=== PATIENT | female | born 1945 | race Caucasian/White ===

== ENCOUNTER 2017-04-27 13:50 | Emergency (ER) | payer MEDICARE ==
[~2017-04-27] VITALS: Ht 162.6 cm; Wt 70.0 kg
[2017-04-27 14:10] VITALS: BP 147/65; PULSE 98; RESP 16; TEMP 98.3; O2SAT 99
--- NOTE | 2017-04-27 14:35 | PD ---
HPI Chief Complaint: Musculoskeletal Complaint Time Seen by Provider: 14:15 Travel History International Travel<30 days: No Contact w/Intl Traveler<30days: No Traveled to known affect area: No History of Present Illness HPI 72-year-old female with history of DVT, PE presents to the ED for evaluation of 2 day history of 6/10 left posterior calf pain. Gradual onset. Patient can identify no acute trauma. She states that she fell a few days ago but she states that she struck her right staples and did not injure her left calf in this fall. She denies any recent period of immobilization or surgery. She denies chest pain, palpitations, shortness of breath, abdominal pain, nausea, vomiting , dysuria. She states that she took Coumadin for a year after her DVT. She no longer takes blood thinners. She lives in [place] for the [place]. She does not have a local physician. [facility] Social History Tobacco Use: No Review of Systems Except as stated in HPI: all other systems reviewed are Neg Physical Exam Narrative GENERAL: Well-nourished, well-developed white female in no acute distress. SKIN: Focused skin assessment warm/dry. Mild ecchymosis over the mid staples of the right leg. HEAD: Normocephalic. EYES: No scleral icterus. No injection or drainage. NECK: Supple, trachea midline. No JVD or lymphadenopathy. CARDIOVASCULAR: Regular rate and rhythm without murmurs, gallops, or rubs. RESPIRATORY: Breath sounds clear and equal bilaterally. No accessory muscle use. GASTROINTESTINAL: Abdomen soft, non-tender, nondistended. Active bowel signs. MUSCULOSKELETAL: No cyanosis, or edema. Tender ecchymosis and edema approximately 3 cm over the anterior right staples. Homans sign negative. FOCUSED LEFT LOWER EXTREMITY EXAM: 2+ DP pulse. Neurovascularly intact distally. Homans sign positive. Patient retains full, active, painless ROM of the extremity. BACK: Nontender without obvious deformity. No CVA tenderness. Data Data Last Documented VS Vital Signs Date Time Temp Pulse Resp B/P (MAP) Pulse Ox O2 Delivery O2 Flow Rate FiO2 04/27/17 14:10 98.3 98 16 147/65 (92) 99 Orders Orders Complete Blood Count With Diff (04/27/17 14:33) Comprehensive Metabolic Panel (04/27/17 14:33) Urinalysis - C+S If Indicated (04/27/17 14:33) Iv Access Insert/Monitor (04/27/17 14:33) Ecg Monitoring (04/27/17 14:33) Oximetry (04/27/17 14:33) Us Leg Venous Doppler (04/27/17 14:33) Ed Discharge Order (04/27/17 16:08) Electrocardiogram (04/27/17 14:42) Labs Laboratory Tests Test 04/27/17 14:40 04/27/17 14:45 Urine Color YELLOW Urine Turbidity CLEAR Urine pH 7.0 Urine Specific [place] 1.012 Urine Protein NEG mg/dL Urine Glucose (UA) NEG mg/dL Urine Ketones NEG mg/dL Urine Occult Blood NEG Urine Nitrite NEG Urine Bilirubin NEG Urine Urobilinogen LESS THAN 2.0 MG/DL Urine Leukocyte Esterase NEG Microscopic Urinalysis Comment CULT NOT INDICATED White Blood Count 5.4 TH/MM3 Red Blood Count 4.38 MIL/MM3 Hemoglobin 13.9 GM/DL Hematocrit 40.7 % Mean Corpuscular Volume 92.8 FL Mean Corpuscular Hemoglobin 31.7 PG Mean Corpuscular Hemoglobin Concent 34.2 % Red Cell Distribution Width 15.0 % Platelet Count 242 TH/MM3 Mean Platelet Volume 7.9 FL Neutrophils (%) (Auto) 65.4 % Lymphocytes (%) (Auto) 22.8 % Monocytes (%) (Auto) 7.4 % Eosinophils (%) (Auto) 3.2 % Basophils (%) (Auto) 1.2 % Neutrophils # (Auto) 3.5 TH/MM3 Lymphocytes # (Auto) 1.2 TH/MM3 Monocytes # (Auto) 0.4 TH/MM3 Eosinophils # (Auto) 0.2 TH/MM3 Basophils # (Auto) 0.1 TH/MM3 CBC Comment DIFF FINAL Differential Comment Blood Urea Nitrogen 14 MG/DL Creatinine 0.73 MG/DL Random Glucose 132 MG/DL Total Protein 7.3 GM/DL Albumin 4.1 GM/DL Calcium Level 9.0 MG/DL Alkaline Phosphatase 108 U/L Aspartate Amino Transf (AST/SGOT) 22 U/L Alanine Aminotransferase (ALT/SGPT) 50 U/L Total Bilirubin 0.2 MG/DL Sodium Level 139 MEQ/L Potassium Level 3.7 MEQ/L Chloride Level 106 MEQ/L Carbon Dioxide Level 27.0 MEQ/L Anion Gap 6 MEQ/L Estimat Glomerular Filtration Rate 79 ML/MIN MDM Medical Decision Making Medical Screen Exam Complete: Yes Emergency Medical Condition: Yes Differential Diagnosis Musculoskeletal pain versus DVT versus muscle spasm versus other Narrative Course 72-year-old female with history of DVT, PE presents to the ED for evaluation of 2 day history of 6/10 left posterior calf pain. Gradual onset. Patient can identify no acute trauma. She states that she fell a few days ago but she states that she struck her right staples and did not injure her left calf in this fall. She denies any recent period of immobilization or surgery. She states that she took Coumadin for a year after her DVT. She no longer takes blood thinners. She lives in [place] for the . She does not have a local physician. Vitals reviewed. On exam of the pleasant white female in no acute distress. She does have a contusion over the right anterior staples. Homans sign negative on the right. The left leg is neurovascularly intact, good pulses, Hohmann sign positive. Exam is otherwise unremarkable. CBC, CMP, UA without concerning abnormalities. US left lower extremity: Negative for DVT. Echogenic focus in the left calf area of pain may represent a small hematoma per radiology read. I discussed the results of the workup with the patient and her . She adamantly states that she's had no trauma to the area. In any case, there is no DVT and the patient can treat symptomatically with RICE therapy. She is stable and discharged home. Diagnosis Primary Impression: Musculoskeletal pain of left lower extremity Additional Impression: Musculoskeletal pain of right lower extremity Referrals: Primary Care Physician Additional Instructions: Rest, ice, elevate the extremity. Apply ice no longer than 10-15 minutes per hour a few times a day. [id number] pain medications as prescribed on the label, as needed, for pain. Return to normal, gentle activity as tolerated. No running, jumping activities for the next few weeks. Follow up with orthopedist or your primary care provider. Return to the ED for any urgent or emergent medical condition. Disposition: 01 DISCHARGE HOME Condition: Stable Keke Burdick Apr 27, 2017 14:35
[2017-04-27 15:25] LABS: AUTOMATED NEUTROPHIL # 3.5 TH/MM3 (1.8-7.7); BASOPHIL # 0.1 TH/MM3 (0-0.2); BASOPHIL % 1.2 % (0.0-2.0); EOSINOPHIL # 0.2 TH/MM3 (0-0.4); EOSINOPHIL % 3.2 % (0.0-4.0); HEMATOCRIT 40.7 % (35.0-46.0); HEMOGLOBIN 13.9 GM/DL (11.6-15.3); LYMPH % 22.8 % (9.0-44.0); LYMPHOCYTE # 1.2 TH/MM3 (1.0-4.8); MEAN CELL VOLUME 92.8 FL (80.0-100.0); MEAN CORPUSCULAR HEMOGLOBIN 31.7 PG (27.0-34.0); MEAN CORPUSCULAR HGB CONC 34.2 % (32.0-36.0); MEAN PLATELET VOLUME 7.9 FL (7.0-11.0); MONO % 7.4 % (0.0-8.0); MONOCYTE # 0.4 TH/MM3 (0-0.9); NEUT % 65.4 % (16.0-70.0); PLATELET COUNT 242 TH/MM3 (150-450); RED BLOOD COUNT 4.38 MIL/MM3 (4.00-5.30); WHITE BLOOD COUNT 5.4 TH/MM3 (4.0-11.0)
[2017-04-27 15:44] LABS: BILIRUBIN, URINE NEG (NEG); BLOOD, URINE NEG (NEG); GLUCOSE,URINE NEG (NEG); KETONE, URINE NEG (NEG); NITRITE,URINE NEG (NEG); URINE COLOR YELLOW (YELLW/STRAW); URINE LEUKOCYTE ESTERASE NEG (NEG)
[2017-04-27 15:49] LABS: ALBUMIN 4.1 GM/DL (3.4-5.0); ALT (GPT) 50 U/L (10-53); AST (GOT) 22 U/L (15-37); BLOOD UREA NITROGEN 14 MG/DL (7-18); CHLORIDE 106 MEQ/L (98-107); CREATININE 0.73 MG/DL (0.50-1.00); GLOMERULAR FILTRATION RATE 79 ML/MIN (>89); GLUCOSE,RANDOM 132 MG/DL (74-106); SODIUM (NA) 139 MEQ/L (136-145)
[2017-04-27 15:51] LABS: ALKALINE PHOSPHATASE 108 U/L (45-117); TOTAL BILIRUBIN ADULT 0.2 MG/DL (0.2-1.0); TOTAL PROTEIN 7.3 GM/DL (6.4-8.2)
--- NOTE | 2017-04-27 16:02 | RADRPT ---
EXAM DATE/TIME: 04/27/2017 15:04 [facility] COMPARISON: No previous studies available for comparison. INDICATIONS : Left leg pain. MEDICAL HISTORY : Deep vein thrombosis. SURGICAL HISTORY : None. ENCOUNTER: Initial ACUITY: 1 day PAIN SCORE: 3/10 LOCATION: Left leg. TECHNIQUE: Venous ultrasound of the leg was performed from the inguinal ligament to the proximal calf. Real-dania e, color Doppler and spectral tracing, compression and augmentation techniques were used. FINDINGS: There is normal compressibility of the deep venous system from the inguinal region to the proximal ca lf. No echogenic clot is seen in the lumen of the common femoral, femoral, popliteal, and posterior tibial veins. There is a normal response of the venous system to proximal and distal augmentation an d respiration. CONCLUSION: 1. Negative for deep venous thrombosis. Echogenic focus in the left calf in area of pain may represen t a small hematoma. Ephraim Gu MD on April 27, 2017 at 15:59 Board Certified Radiologist. This report was verified electronically.
--- NOTE | 2017-04-28 18:18 | EKG ---
Date Performed: 04/27/2017 Time Performed: 14:42:13 PTAGE: 72 years EKG: Sinus rhythm NONSPECIFIC T-WAVE ABNORMALITY BORDERLINE ECG NO PREVIOUS TRACING DOCTOR: Gladis Euceda Interpretating Date/Time 04/28/2017 18:14:13
== END 2017-04-27 16:47 | disposition home or self-care (01) ==
LOC: NEPE 13:50
DX: M79.662 Pain in left lower leg (principal); M79.604 Pain in right leg
CPT/HCPCS: 80053; 81001; 85025; 93005; 93971; 99285